=== PATIENT | male | born 1945 | race Caucasian/White ===

== ENCOUNTER 2022-07-22 08:44 | Outpatient (CLI) | payer OTHER | END 2022-07-22 08:45 | disposition home or self-care (01) | LOC: NM 08:44 | PROVIDERS: ATTEND Anesthesiology Pain Medicine | DX: S22.41XA Multiple fractures of ribs, right side, initial encounter for closed fracture (principal); S32.019A Unspecified fracture of first lumbar vertebra, initial encounter for closed fracture; M15.9 Polyosteoarthritis, unspecified | CPT/HCPCS: 78306; A9503 ==

== ENCOUNTER 2023-07-19 13:44 | Outpatient (CLI) | payer OTHER | END 2023-07-19 13:45 | disposition home or self-care (01) | LOC: SCSMRI 13:44 | PROVIDERS: ATTEND Nurse Practitioner Family | DX: M54.6 Pain in thoracic spine (principal); S32.010G Wedge compression fracture of first lumbar vertebra, subsequent encounter for fracture with delayed healing; M47.816 Spondylosis without myelopathy or radiculopathy, lumbar region | CPT/HCPCS: 72146; 72148 ==

== ENCOUNTER 2023-10-25 15:32 | Outpatient (CLI) | payer OTHER | END 2023-10-25 15:33 | disposition home or self-care (01) | LOC: BICRAD 15:32 | PROVIDERS: ATTEND Anesthesiology Pain Medicine | DX: M16.11 Unilateral primary osteoarthritis, right hip (principal) ==

== ENCOUNTER 2023-12-12 12:29 | Outpatient (CLI) | payer OTHER | END 2023-12-12 12:30 | disposition home or self-care (01) | LOC: SCSMRI 12:29 | PROVIDERS: ATTEND Nurse Practitioner Family | DX: M25.551 Pain in right hip (principal); S76.011A Strain of muscle, fascia and tendon of right hip, initial encounter; S73.191A Other sprain of right hip, initial encounter; M76.9 Unspecified enthesopathy, lower limb, excluding foot; N21.0 Calculus in bladder; M67.853 Other specified disorders of tendon, right hip ==